=== PATIENT | male | born 1965 | race Caucasian/White ===

== ENCOUNTER 2017-07-25 22:12 | Emergency (ER) | payer BC ==
[~2017-07-25] VITALS: Ht 193 cm; Wt 95.8 kg
[2017-07-25 22:22] VITALS: TEMP 36.8; Ht 193 cm; Wt 95.8 kg
[2017-07-25] MEDS ORDERED: ATV/1 PO (23:01)
[2017-07-25] MEDS ORDERED: OXYC20TA50 PO (23:01)
[2017-07-25] MEDS ORDERED: ONDA4TAB46 PO (23:02)
[2017-07-25] MEDS ORDERED: POLY335019 PO (23:02)
[2017-07-25] MEDS ORDERED: DOCU-94 PO (23:02)
[2017-07-25] MEDS ORDERED: PROC1TAB5 PO (23:04)
[2017-07-25] MEDS ORDERED: HALO2TAB PO (23:04)
[2017-07-25] MEDS ORDERED: [UNRECOGNIZED DRUG - CODE] (23:17)
[2017-07-25] MEDS ORDERED: MAGNESIUM CITRATE 296 ML/BTL PO STA (23:38)
[2017-07-25] MEDS ORDERED: SOAP SUDS ENEMA PR STA (23:38)
--- NOTE | 2017-07-25 23:39 | EMERGENCY ROOM VISIT NOTE ---
History Report prepared by Max: Ambika Gonzalez Under the Supervision of: Dr. Evens Erwin M.D. First contact with patient: 22:39 Chief Complaint: CONSTIPATION Stated Complaint: CONSTIPATION Nursing Triage Summary: Patient has been taking medications for constipation that started after chemo drug administration. Patient took miralax at home with no relief. History of Present Illness The patient is a 51 year old male who presents to the Emergency Room with complaints of persistent constipation starting HEALTH INFORMATION TECHNOLOGIST. 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 He has had constipation since starting the chemo. He tried taking Miralax which made watery stool come out around his hard stool. He has tried digging out the stool to no success. He is having pain when trying to have a bowel movement. He does not have any pain otherwise. Source of History: patient, family Onset: HEALTH INFORMATION TECHNOLOGIST Position: other (global) Quality: other (constipation) Timing: other (persistent) Note: Pt reports pain with bowel movement. Review of Systems See HPI for pertinent positives & negatives. A total of 10 systems reviewed and were otherwise negative. Past Medical & Surgical Medical Problems: (1) Lung cancer Family History No pertinent family history stated. Social History Smoking Status: Never Smoker Marital Status: Current/Historical Medications Scheduled Docusate Sodium (Colace), 1 CAP PO BID Lorazepam (Ativan), 1 MG PO HS Scheduled PRN Haloperidol (Haloperidol), 1 TAB PO UD PRN for Nausea Ondansetron Hcl (Zofran), 4 MG PO Q6 PRN for Nausea Oxycodone Hcl (Oxycontin), 20 MG PO q4-6 hrs PRN for Pain Polyethylene Glycol 3350 (Miralax), 17 GM PO DAILY PRN for Constipation Prochlorperazine Maleate (Compazine), 10 MG PO Q6H PRN for Constipation Miscellaneous Medications Cetuximab (Erbitux), Unknown Dose Allergies Uncoded Allergies: STEROIDS (Allergy, Unknown, cannot have with chemo program, 07/25/17) Physical Exam Vital Signs Date Time Temp Pulse Resp B/P (MAP) Pulse Ox O2 Delivery O2 Flow Rate FiO2 07/26/17 02:00 135 20 111/85 96 Room Air 07/26/17 00:00 115 20 99 Room Air 07/25/17 22:22 36.8 125 22 124/85 92 Room Air Physical Exam GENERAL: Patient is a healthy-appearing well-nourished male HEAD: Normocephalic atraumatic EYES: Ocular movements intact pupils equal and react to light OROPHARYNX mucous membranes are moist no exudates present no erythema or edema present NECK: Supple no nuchal rigidity CHEST: Good equal expansion LUNGS: Clear and equal to auscultation CARDIAC: Normal S1 and S2 ABDOMEN: Soft nontender no guarding BACK: No CVA tenderness EXTREMITIES: No pain upon palpation normal muscle strength in all groups no clubbing cyanosis or edema NEURO: Patient is following commands and answering questions appropriately. Alert and oriented x3 Cranial Nerves 2-12 grossly intact Medical Decision & Procedures ER Provider Diagnostic Interpretation: X-ray results as stated below per interpretation by me: 1 view KUB X-ray: No free air. Large stool ball in the rectum. No obstruction. Medications Administered Medications (Trade) Dose Ordered Sig/Genesis Route Start Time Stop Time Status Last Admin Dose Admin Magnesium Citrate (Citrate Of Magnesia Soln) 296 ml NOW STAT PO 07/25/17 23:38 07/25/17 23:40 DC 07/25/17 23:38 296 ML Glycerin (Glycerin Adult Supp) 1 ea NOW ONCE MD 07/26/17 01:30 07/26/17 01:31 DC 07/26/17 01:30 1 EA Glycerin (Glycerin Adult Supp) 1 ea NOW STAT MD 07/26/17 01:27 07/26/17 01:28 DC 07/26/17 01:27 1 EA Bisacodyl (Dulcolax Supp) 20 mg STK-MED ONCE .ROUTE 07/26/17 01:27 07/26/17 01:28 DC 07/26/17 01:27 20 MG ED Course 2241: Past medical records reviewed. The patient was evaluated in room B6. A complete history and physical examination was performed. I recommended blood work along with CT and he is refusing. 2328: Soap Suds Enema 1 ea MD, Magnesium Citrate 296 ml PO. 0127: Glycerin 1 ea MD, Bisacodyl 20 mg MD. 0130: Glycerin 1 ea MD. Medical Decision Differential diagnosis: Etiologies such as appendicitis, diverticulitis, PUD, biliary pathology, UTI, pancreatitis, obstruction, mesenteric ischemia, aortic pathology, infections, inflammatory bowel disease, renal colic, as well as others were entertained. This is a 51-year-old male who presents emergency department complaining of constipation. I strongly recommended to the patient that an IV was established and the patient received pain medication and we perform a CAT scan to see if there is any blockage however the patient is adamantly refusing this. KUB is revealing of a large stool ball in the rectum. I attempted to disimpact the patient without success. At this point the patient was given an enema. I was unable to disimpact the patient somewhat. He was then given ducal accident and glycerin suppositories and I was able to further disimpact the patient. I feel the patient can be discharged for follow-up with his primary care physician. Impression Primary Impression: Constipation Scribe Attestation The scribe's documentation has been prepared under my direction and personally reviewed by me in its entirety. I confirm that the note above accurately reflects all work, treatment, procedures, and medical decision making performed by me. Departure Information Dispostion Home / Self-Care Referrals Tarun Jones III, M.D. (PCP) Patient Instructions My [facility] Problem Qualifiers Primary Impression: Constipation Constipation type: unspecified constipation type Qualified Codes: K59.00 - Constipation, unspecified
[2017-07-26] MEDS ORDERED: BISACODYL 10 MG SUPP ONE (01:27)
[2017-07-26] MEDS ORDERED: GLYCERIN ADULT 1 EA SUPP ONE (01:27)
[2017-07-26] MEDS ORDERED: BISACODYL 10 MG SUPP PR STA ×2 (01:27)
[2017-07-26] MEDS ORDERED: GLYCERIN ADULT 1 EA SUPP PR STA (01:27)
[2017-07-26] MEDS ORDERED: GLYCERIN ADULT 1 EA SUPP PR ONE (01:30)
[2017-07-26 02:00] VITALS: BP 111/85; PULSE 135; O2SAT 96
--- NOTE | 2017-07-26 07:35 | DIAGNOSTIC IMAGING REPORT ---
KUB CLINICAL HISTORY: Constipation. FINDINGS: 2 AP supine abdominal radiographs are obtained. No prior studies are available for comparison at the time of dictation. There is a nonobstructed abdominal bowel gas pattern. Moderate colonic fecal retention is observed. No evidence of intraperitoneal free air is seen on these supine images. Cholecystectomy clips are noted. There are no abnormal abdominal calcifications. Pelvic phleboliths are observed. The skeletal structures appear intact. There is mild lumbosacral spondylosis and scoliosis. IMPRESSION: Nonobstructed abdominal bowel gas pattern noting moderate colonic fecal retention. Electronically signed by: Ralph Jurado M.D. 07/26/2017 7:34 AM Dictated Date/Time: 07/26/2017 7:33 AM
== END 2017-07-26 02:54 | disposition home or self-care (01) ==
LOC: C.EDB 22:13
DX: K59.00 Constipation, unspecified (principal); Z85.118 Personal history of other malignant neoplasm of bronchus and lung; Z88.8 Allergy status to other drugs, medicaments and biological substances